=== PATIENT | female | born 1970 | race Caucasian/White ===

== ENCOUNTER 2019-06-30 13:05 | Emergency (ER) | payer MEDICAID ==
[~2019-06-30] VITALS: Ht 160 cm; Wt 53.5 kg
[2019-06-30 13:13] VITALS: Ht 160 cm; Wt 53.5 kg
[2019-06-30 15:45] LABS: CALCIUM 8.8 mg/dL (8.5-10.1); CARBON DIOXIDE 28.2 mmol/L (21-32); CHLORIDE SERUM 97 mmol/L (98-107); CREATININE SERUM 0.6 mg/dL (0.6-1.0); GFR1 > 60 mL/min; GLUCOSE SERUM 91 mg/dL (74-106); POTASSIUM SERUM 3.7 mmol/L (3.5-5.1); SODIUM SERUM 135 mmol/L (136-145)
[2019-06-30 15:46] LABS: BASOPHIL % 0.4 % (0-2)
[2019-06-30 15:50] LABS: ALKALINE PHOSPHATASE 91 U/L (46-116); ALT/SGPT 14 U/L (14-59); AST/SGOT 11 U/L (15-37); BILIRUBIN TOTAL 0.4 mg/dL (0.20-1.00); LIPASE 50 IU/L (73-393)
[2019-06-30 15:55] LABS: RED CELL DISTRIBUTION WIDTH 19.1 % (11.5-14.5)
[2019-06-30 15:57] LABS: PLATELET COUNT 1155 x10^3mcL (130-400)
[2019-06-30 16:17] LABS: UA SPECIFIC GRAVITY 1.015 (1.005-1.035); microscopic required? YES; urine erythrocyte TRACE (NEGATIVE)
[2019-06-30 17:03] LABS: rbc morphology (normal/abnorm) ABNORMAL (NORMAL)
[2019-06-30 21:04] VITALS: BP 120/78
== END 2019-06-30 21:04 | disposition short-term general hospital (02) ==
LOC: ED 13:05
PROVIDERS: Emergency Medicine
DX: D64.9 Anemia, unspecified (principal); D47.3 Essential (hemorrhagic) thrombocythemia; R19.00 Intra-abdominal and pelvic swelling, mass and lump, unspecified site
CPT/HCPCS: J2405; J7030; P9016; Q0092; Q9967